=== PATIENT | female | born 1970 | race Caucasian/White ===

== ENCOUNTER 2023-10-19 01:29 | Emergency (ER) | payer BC, SELFPAY ==
[2023-10-19 01:39] VITALS: BP 108/77; PULSE 84; RESP 16; TEMP 36.3; O2SAT 97; BMI 21.6
--- NOTE | 2023-10-19 01:52 | ED.GENADULT ---
HPI - General Adult General Chief complaint: Abdominal Pain Stated complaint: Abdominal Pain Time Seen by Provider: 10/19/23 01:51 History of Present Illness HPI narrative: starting around 3-4 hours ago RLQ burning pain rated 10/ 10. denies hx of similar events in the past. pain has now begun to radiate to the mid lower abd. as well as the RLQ. last PO intake around 1700 53-year-old woman presenting to the emergency department with concern of abdominal pain. Sharp pain remaining in the right mid abdomen. Seems to begin in the epigastrium is slid down to the right mid abdomen and then seems to be burning sensation is she gestures towards her groin. No dysuria frequency urgency. No hematuria. No history kidney stones. She is also having pain wrapping around to the flank a little bit on the right side. Just could not stand up straight now improved. Does have a history of IBS. Does not know of any ingestion that might have flared this. Nausea but now improved somewhat. Pain is lessened a little bit as well. Status post hysterectomy and cholecystectomy. Related Data Home Medications Medication Instructions Recorded Confirmed buspirone 15 mg tablet 15 mg PO 3XD 10/19/23 10/19/23 fluoxetine 20 mg capsule 60 mg PO QAM 10/19/23 10/19/23 valacyclovir 500 mg tablet 500 mg PO BID PRN 10/19/23 10/19/23 Allergies Allergy/AdvReac Type Severity Reaction Status Date / Time azithromycin Allergy Verified 10/19/23 01:49 Review of Systems Status of ROS: Reports: 6 or more systems reviewed and unremarkable except as noted in History and below PFSH PFSH Social History Non-prescribed substance use: denies use Exam Narrative: Exam Narrative: Pleasant. Seems rather uncomfortable. Accompanied here by significant other. Initially lying in the position on her left side. Guards initially to palpation in the left mid to low abdomen but is tender to mostly diffusely over the abdomen. Particularly so in the right mid side abdomen. No masses appreciated. Lungs are clear. Extremities are well perfused without edema. Const: Vital Signs, click to edit/add: Vital Signs - 24 hr 10/19/23 01:39 Temperature 97.3 F L Pulse Rate [Pulse Oximeter] 84 Respiratory Rate 16 Blood Pressure [Ri ght Upper Arm] 108/77 Pulse Oximetry 97 Oxygen Delivery Me thod Room Air Documenting provider has reviewed patient's vital signs: yes Course Vital Signs Vital signs: Initial Vital Signs Temperature 97.3 F L 10/19/23 01:39 Temperature Source Temporal Artery Scan 10/19/23 01:39 Pulse Rate 84 10/19/23 01:39 Respiratory Rate 16 10/19/23 01:39 Blood Pressure 108/77 10/19/23 01:39 Blood Pressure Mean 87 10/19/23 01:39 Blood Pressure Position Sitting 10/19/23 01:39 Pulse Oximetry 97 10/19/23 01:39 Oxygen Delivery Method Room Air 10/19/23 01:39 Vital Signs Temperature 97.3 F L 10/19/23 01:39 Pulse Rate 84 10/19/23 01:39 Respiratory Rate 16 10/19/23 01:39 Blood Pressure 108/77 10/19/23 01:39 Pulse Oximetry 97 10/19/23 01:39 Oxygen Delivery Method Room Air 10/19/23 01:39 Temperature 97.3 F L 10/19/23 01:39 Pulse Rate 84 10/19/23 01:39 Respiratory Rate 16 10/19/23 01:39 Blood Pressure 108/77 10/19/23 01:39 Pulse Oximetry 97 10/19/23 01:39 Oxygen Delivery Method Room Air 10/19/23 01:39 Medications Administered Medications: Discontinued Medications Generic Name Dose Route Start Last Admin Trade Name Freq PRN Reason Stop Dose Admin Sodium Chloride 1,000 mls @ 1,000 mls/hr 10/19/23 02:06 10/19/23 03:15 0.9 % Sodium Chloride 1000 Ml IV 10/19/23 03:05 Infused .Q1H ONE Infusion Ketorolac Tromethamine 30 mg 10/19/23 02:06 10/19/23 02:15 Ketorolac 30 Mg/Ml Inj IVP 10/19/23 02:07 30 mg ONCE ONE Administration Ondansetron HCl 4 mg 10/19/23 02:06 10/19/23 02:15 Ondansetron 2 Mg/Ml Inj IVP 10/19/23 02:07 4 mg ONCE ONE Administration Medical Decision Making MDM Narrative Medical decision making narrative: Differential here it does include ureteral stone however seem to typically not be reproducible. This could be intestinal colic and gas. Vascular disruption/dissection also in differential. Urinary tract infection perhaps. Unclear where to focus imaging if needed at this point. Will try to help with discomfort and hydration. IV fluids normal saline. Ketorolac. Zofran. With reassessment overall improved markedly and almost seemingly spontaneous resolution. Labs are reassuring. Normal D-dimer. I did discuss imaging though with improvement and normal labs likely low yield. I suppose could have passed renal stone. I think bowel colic more likely. See patient discharge plan Lab Data Lab results reviewed: Yes I reviewed the patient's lab results Labs: Lab Results 10/19/23 10/19/23 Range/Units 02:02 02:07 WBC 8.30 (4.50-11.00) K/uL RBC 3.90 L (4.00-5.20) m/uL Hgb 12.7 (12.0-16.0) gm/dL Hct 38.1 (33.0-51.0) % MCV 98 (80-100) fL MCH 33 (26-34) pg MCHC 33 (32-36) gm/dL RDW Coeff of [place] 13.1 (11.5-15.5) % Plt Count 260 (140-440) K/uL Neut % (Auto) 53.3 (42.0-72.0) % Lymph % (Auto) 35.2 (20-44) % [place] % (Auto) 8.8 (0.0-11.0) % Eos % (Auto) 2.4 (0.0-7.0) % Baso % (Auto) 0.2 (0.0-3.0) % Neut # (Auto) 4.42 (1.7-7.0) K/uL Lymph # (Auto) 2.92 H (0.90-2.90) K/uL [place] # (Auto) 0.70 (0.00-0.90) K/UL Eos # (Auto) 0.20 (0.00-0.50) K/uL Baso # (Auto) 0.02 (0.00-0.30) K/uL Abs Immat Gran (auto) 0.01 (0.00-0.30) K/uL Imm/Tot Granulo (auto) 0.1 % D-Dimer Quant (PE/DVT) 0.33 (0.00-0.50) ug/ml Sodium 137 (135-149) mmol/L Potassium 3.7 (3.6-5.1) mmol/L Chloride 103 (96-114) mmol/L Carbon Dioxide 24 (20-32) mmol/L Anion Gap 10 (7-15) mEq/L BUN 14 (7-30) mg/dL Creatinine 0.5 (0.5-1.5) mg/dL Estimated Creat Clear 115.74 Estimated GFR 111 ml/min Glucose 99 (60-115) mg/dL Calcium 9.3 (8.4-10.6) mg/dL Total Bilirubin 0.7 (0.1-1.5) mg/dL Direct Bilirubin 0.1 (0.0-0.5) mg/dL AST 24 (12-35) U/L ALT 16 (4-35) U/L Alkaline Phosphatase 84 (40-150) U/L C-Reactive Protein < 0.5 L (0.5-1.0) mg/dL Total Protein 7.3 (6.0-8.3) g/dL Albumin 4.5 (3.3-5.0) g/dL Urine Color Yellow (Yellow) Urine Appearance Clear (Clear) Urine pH 5.5 (5.0-8.5) Ur Specific [place] <= 1.005 (1.000-1.030) Urine Protein Negative (Negative) Urine Glucose (UA) Negative (Negative) Urine Ketones Negative (Negative) Urine Blood Trace-intact A (Negative) Urine Nitrite Negative (Negative) Urine Bilirubin Negative (Negative) Urine Urobilinogen 0.2 (0.2-1.0) Ur Leukocyte Esterase Negative (Negative) Urine RBC 0-2 (0-2) Urine WBC 0-2 (0-5) Ur Squamous Epith Cells None (None-Few) Urine Bacteria None (None) Discharge Plan Discharge Clinical Impression: Abdominal pain Patient Disposition: Home w/ Parent or Adult Condition: Improved Additional Instructions: Admittedly it is a little unclear as to what might have caused your pain. It has some elements that one might associate with colicky movements of the ureter or the bowels; the latter probably more likely. I am happy you are feeling better. Return for marked increase in persistent pain, repeated vomiting, associated fever. Prescriptions: No Action valacyclovir 500 mg tablet 500 mg PO BID PRN fluoxetine 20 mg capsule 60 mg PO QAM buspirone 15 mg tablet 15 mg PO 3XD Follow Up/Referrals: Provider,Not a Local [Primary Care Provider] - Stand Alone Forms: [facility] Info Instructions
[2023-10-19] MEDS: KETOROLAC 30 MG/ML inj IVP (02:15)
[2023-10-19] MEDS: 0.9 % SODIUM CHLORIDE 1000 ml 1,000 ML IV (02:15)
[2023-10-19] MEDS: ONDANSETRON 2 MG/ML inj 4 MG IVP (02:15)
[2023-10-19 02:28] LABS: Appearance Urine Clear (Clear); Bilirubin Urine Negative (Negative); Blood Urine Trace-intact (Negative); Color Urine Yellow (Yellow); Glucose Urine Negative (Negative); Ketones Urine Negative (Negative); Specific Gravity Urine <= 1.005 (1.000-1.030); pH Urine 5.5 (5.0-8.5)
[2023-10-19 02:29] LABS: Leukocyte Esterase Urine Negative (Negative); Nitrite Urine Negative (Negative); Protein Urine Negative (Negative); RBC Urine 0-2 (0-2); Urobilinogen Urine 0.2 (0.2-1.0); WBC Urine 0-2 (0-5)
[2023-10-19 02:32] LABS: Basophils Absolute Auto 0.02 K/uL (0.00-0.30); Basophils Percent Auto 0.2 % (0.0-3.0); Eosinophils Percent Auto 2.4 % (0.0-7.0); Hematocrit 38.1 % (33.0-51.0); Hemoglobin* 12.7 gm/dL (12.0-16.0); Immature Granulocytes Abs Auto 0.01 K/uL (0.00-0.30); Immature Granulocytes Pct Auto 0.1 %; Lymphocytes Absolute Auto 2.92 K/uL (0.90-2.90); Lymphocytes Percent Auto 35.2 % (20-44); Mean Corpuscular HGB Conc 33 gm/dL (32-36); Mean Corpuscular Hemoglobin 33 pg (26-34); Mean Corpuscular Volume 98 fL (80-100); Monocytes Percent Auto 8.8 % (0.0-11.0); Neutrophils Absolute Auto 4.42 K/uL (1.7-7.0); Neutrophils Percent Auto 53.3 % (42.0-72.0); Platelet Count* 260 K/uL (140-440); RDW Coefficient of Variation % 13.1 % (11.5-15.5)
[2023-10-19 02:35] LABS: Slide Review Reflex No
[2023-10-19 02:45] LABS: Albumin* 4.5 g/dL (3.3-5.0); Chloride* 103 mmol/L (96-114)
[2023-10-19 02:46] LABS: Potassium* 3.7 mmol/L (3.6-5.1); Sodium* 137 mmol/L (135-149)
[2023-10-19 02:48] LABS: Anion Gap 10 mEq/L (7-15); Aspartate Amino Transferase* 24 U/L (12-35); Bilirubin Direct* 0.1 mg/dL (0.0-0.5); Bilirubin Total* 0.7 mg/dL (0.1-1.5); Carbon Dioxide* 24 mmol/L (20-32); Creatinine* 0.5 mg/dL (0.5-1.5); Est. Creatinine Clearance* 115.74; Estimated Glomerular Filt Rate 111 ml/min; Total Protein* 7.3 g/dL (6.0-8.3)
[2023-10-19 02:49] LABS: Alanine Aminotransferase* 16 U/L (4-35); Alkaline Phosphatase* 84 U/L (40-150); Blood Urea Nitrogen* 14 mg/dL (7-30); Calcium* 9.3 mg/dL (8.4-10.6); Glucose* 99 mg/dL (60-115)
[2023-10-19 02:51] LABS: D Dimer Quantitative* 0.33 ug/ml (0.00-0.50)
[2023-10-19 02:52] LABS: C Reactive Protein* < 0.5 mg/dL (0.5-1.0)
--- NOTE | 2023-10-19 03:22 | PC.NURSE ---
patient DC accompanied by , all belongings sent home with patient. DC instructions reviewed with patient and , no further questions
== END 2023-10-19 03:22 | disposition home or self-care (01) ==
PROVIDERS: Emergency Provider Family Medicine
DX: R10.9 Unspecified abdominal pain (principal)
CPT/HCPCS: 36415; 80048; 80076; 81001; 85025; 85379; 86140; 96374; 96375; 99284; J1885; J2405; J7030